=== PATIENT | female | born 1980 | race Two or more races ===

== ENCOUNTER 2024-10-12 07:32 | Outpatient (CLI) | payer OTHER | END 2024-10-12 07:39 | disposition home or self-care (01) | LOC: MAMO-SONO 07:32 | DX: N64.4 Mastodynia (principal); Z12.31 Encounter for screening mammogram for malignant neoplasm of breast; N13.0 Hydronephrosis with ureteropelvic junction obstruction; R94.6 Abnormal results of thyroid function studies ==

== ENCOUNTER 2024-10-20 07:19 | Outpatient (CLI) | payer OTHER | END 2024-10-20 07:23 | disposition home or self-care (01) | LOC: NUCLEAR 07:19 | DX: I87.2 Venous insufficiency (chronic) (peripheral) (principal); R60.0 Localized edema ==

== ENCOUNTER 2024-12-02 10:07 | Outpatient (CLI) | payer OTHER ==
[2024-12-02 11:23] LABS: BASO % 0.9 % (0.1-1.2); EOS # 0.13 (0.04-0.54); EOS % 3.7 % (0.7-7.0); LYMPH # 1.51 (1.18-3.74); LYMPH % 43.0 % (19.3-53.1); MEAN PLATELET VOLUME 10.20 fl (9.4-12.4); MONO # 0.37 (0.24-0.82); MONO % 10.5 % (4.7-12.5); NEUT # 1.46 (1.56-6.13); NEUT % 41.6 % (34.0-71.1); RED CELL DISTRIBUTION WIDTH 14.4 % (11.6-14.4)
[2024-12-02 12:00] LABS: URINE BILIRRUBIN NEGATIVE (NEGATIVE); URINE BLOOD NEGATIVE; URINE GLUCOSE NEGATIVE (NEGATIVE); URINE KETONE NEGATIVE (NEGATIVE); URINE LEUKOCYTE NEGATIVE; URINE NITRATE NEGATIVE; URINE PROTEIN NEGATIVE (NEGATIVE); URINE UROBILINOGEN 0.2 E.U./dl
[2024-12-02 12:01] LABS: ALT/SGPT 25.0 U/L (12-78); AST/SGOT 13.0 U/L (15-37); BILIRUBIN TOTAL 0.54 mg/dL (0.3-1.2); BUN CREA RATIO 15.0 (7.0-25.0); CHOL HDL RATIO 2.5 (0-5.0); CREATININE SERUM 0.61 mg/dL (0.55-1.02); GFR 107.56; GLOBULINA 3.2 G/DL (2.4-3.5); GLUCOSE FASTING 97.0 mg/dL (65-100); HDL 61.0 mg/dl (40-60); LDL 83.0 mg/dl (0-130); OSMOLALITY SERUM 282.0 MOSM/KG (275-295); T4 FREE 0.85 NG/ML (0.76-1.46); TSH 1.68 uIU/mL (0.358-3.74); VLDL 9.0 (0-39)
[2024-12-02 12:25] LABS: URINE APPEARANCE CLEAR; URINE COLOR YELLOW
[2024-12-02 12:26] LABS: URINE BACTERIA FEW; URINE CRYSTALS NEGATIVE /HPF; URINE MUCUS NEGATIVE; URINE RBC 0-3 /HPF; URINE WBC 0-2 /hpf
== END 2024-12-02 10:10 | disposition home or self-care (01) ==
LOC: LAB 10:07
DX: R94.6 Abnormal results of thyroid function studies (principal); Z00.00 Encounter for general adult medical examination without abnormal findings; E78.5 Hyperlipidemia, unspecified; R80.9 Proteinuria, unspecified

== ENCOUNTER 2025-03-01 06:50 | Outpatient (CLI) | payer OTHER ==
[2025-03-01 07:48] LABS: URINE APPEARANCE Clear; URINE BILIRRUBIN Negative (NEGATIVE); URINE BLOOD Trace; URINE COLOR Yellow; URINE GLUCOSE Negative (NEGATIVE); URINE KETONE Negative (NEGATIVE); URINE LEUKOCYTE Negative; URINE NITRATE Negative; URINE PROTEIN Negative (NEGATIVE); URINE UROBILINOGEN 0.2 E.U./dl
[2025-03-01 07:49] LABS: URINE BACTERIA 2306.0 uL (0.0-1933); URINE EPITHELIAL CELLS 15.6 uL (0.0-38.8); URINE RBC 4.1 uL (0.0-20.8); URINE WBC 11.4 uL (0.0-23.2)
[2025-03-01 07:54] LABS: BASO % 1.0 % (0.1-1.2); EOS # 0.15 (0.04-0.54); EOS % 3.0 % (0.7-7.0); LYMPH # 2.04 (1.18-3.74); LYMPH % 40.2 % (19.3-53.1); MEAN PLATELET VOLUME 10.20 fl (9.4-12.4); MONO # 0.58 (0.24-0.82); MONO % 11.4 % (4.7-12.5); NEUT # 2.24 (1.56-6.13); NEUT % 44.2 % (34.0-71.1); RED CELL DISTRIBUTION WIDTH 14.0 % (11.6-14.4); URINE CAST 0.42 uL (0.0-1.40)
[2025-03-01 08:39] LABS: ALT/SGPT 25.0 U/L (12-78); AST/SGOT 15.0 U/L (15-37); BILIRUBIN TOTAL 0.47 mg/dL (0.3-1.2); BUN CREA RATIO 23.0 (7.0-25.0); CHOL HDL RATIO 2.5 (0-5.0); CREATININE SERUM 0.71 mg/dL (0.55-1.02); GFR 89.85; GLOBULINA 3.5 G/DL (2.4-3.5); GLUCOSE FASTING 93.0 mg/dL (65-100); HDL 60.0 mg/dl (40-60); LDL 78.0 mg/dl (0-130); OSMOLALITY SERUM 284.0 MOSM/KG (275-295); T4 TOTAL 7.66 UG/DL (4.8-13.9); TSH 2.43 uIU/mL (0.358-3.74); VLDL 11.0 (0-39)
== END 2025-03-01 06:54 | disposition home or self-care (01) ==
LOC: LAB 06:50
DX: E06.3 Autoimmune thyroiditis (principal); I10 Essential (primary) hypertension; E78.5 Hyperlipidemia, unspecified; N39.0 Urinary tract infection, site not specified; R73.9 Hyperglycemia, unspecified; Z00.00 Encounter for general adult medical examination without abnormal findings